=== PATIENT | male | born 1970 | race African-American/Black ===

== ENCOUNTER 2021-10-15 18:21 | Inpatient (IN) | payer OTHER ==
[2021-10-15] MEDS ORDERED: LORazepam 2 MG/ML SDV VIAL IM ONE (19:38)
[2021-10-15] MEDS ORDERED: HALOPERIDOL LACTATE 5 MG/ML IM ONE (19:38)
[2021-10-15 21:10] LABS: BASO % 0.6 % (0-2.0); EOS % 2.3 % (0-4.5); HEMOGLOBIN 13.1 GM/dL (11.7-16.9); LYMPH % 27.6 % (8-40); MCH 26.2 pg (25.7-33.7); MCHC 32.8 g/dl (32.0-35.9); MEAN PLT VOLUME 8.4 fl (7.5-11.1); MONO % 14.6 % (3.8-10.2); NEUT % 54.9 % (42.8-82.8); PLATELET COUNT 157 10^3/uL (134-434); RDW 17.1 % (11.9-15.9)
[2021-10-15 21:30] LABS: EPI CELLS 4 /uL (0-25.1); HYALINE CASTS 0 /uL (0-3.1); URINE APPEARANCE CLEAR; URINE BACTERIA 5 /uL (0-1359); URINE BILIRUBIN NEGATIVE (NEGATIVE); URINE COLOR YELLOW; URINE GLUCOSE (UA) NEGATIVE (NEGATIVE); URINE KETONE NEGATIVE (NEGATIVE); URINE LEUK ESTERASE TRACE (NEGATIVE); URINE NITRITE NEGATIVE (NEGATIVE); URINE PROTEIN NEGATIVE (NEGATIVE); URINE RBC 10 /uL (0-23.9); URINE UROBILINOGEN 0.2 mg/dL (0.2-1.0); URINE WBC 5 /uL (0-25.8)
[2021-10-15 21:39] LABS: CALCIUM 8.8 mg/dL (8.5-10.1)
[2021-10-15 21:40] LABS: ALBUMIN 3.2 g/dl (3.4-5.0); BLOOD UREA NITROGEN 15.3 mg/dL (7-18)
[2021-10-15 21:43] LABS: CREATININE 0.8 mg/dL (0.55-1.3)
[2021-10-15 21:45] LABS: BILIRUBIN,TOTAL 0.2 mg/dL (0.2-1); TOT PROT 7.1 g/dl (6.4-8.2)
[2021-10-16] MEDS ORDERED: AZITHROMYCIN IVPB 500 MG in DEXTROSE 5%-WATER - 250 ML IVPB ONE (06:00)
[2021-10-16] MEDS ORDERED: cefTRIAXone SODIUM 1 GM VIAL ONE ×2 (06:53→09:54)
[2021-10-16] MEDS ORDERED: DEXTROSE 5%-WATER - 50 ML IVPB ONE ×2 (06:53→09:54)
[2021-10-16] MEDS: CEFTRIAXONE 1 GM in DEXTROSE 5%-WATER - 50 ML IVPB SCH (06:55)
[2021-10-16] MEDS ORDERED: AZITHROMYCIN IVPB 500 MG/250 ML BAG IVPB ONE (08:30)
[2021-10-16 08:50] VITALS: BMI 24.1
[2021-10-16 09:17] LABS: BASO % 0.4 % (0-2.0); EOS % 1.9 % (0-4.5); HEMATOCRIT 43.2 % (35.4-49); LYMPH % 16.5 % (8-40); MCH 26.4 pg (25.7-33.7); MCHC 32.5 g/dl (32.0-35.9); MEAN CELL VOLUME 81.2 fl (80-96); MEAN PLT VOLUME 8.5 fl (7.5-11.1); MONO % 8.6 % (3.8-10.2); NEUT % 72.6 % (42.8-82.8); PLATELET COUNT 164 10^3/uL (134-434); RBC 5.32 M/mm3 (4.00-5.60); WHITE BLOOD COUNT 5.8 K/mm3 (4.0-10.0)
[2021-10-16 09:34] LABS: CALCIUM 8.9 mg/dL (8.5-10.1)
[2021-10-16 09:35] LABS: BLOOD UREA NITROGEN 9.3 mg/dL (7-18)
[2021-10-16 09:38] LABS: CREATININE 0.6 mg/dL (0.55-1.3); PHOSPHOROUS 3.6 mg/dL (2.5-4.9)
[2021-10-16 09:39] LABS: BILIRUBIN,TOTAL 0.3 mg/dL (0.2-1); TOT PROT 7.2 g/dl (6.4-8.2)
[2021-10-16] MEDS ORDERED: MINERAL OIL/PETROLAT/WATER TOPICAL CREAM 454 GM JAR TP PRN (10:12)
[2021-10-16] MEDS: amLODIPine BESYLATE 10 MG TABLET (FP) PO SCH (10:18)
[2021-10-16] MEDS: ENOXAPARIN NA (PORCINE) 40 MG/0.4 ML DISP.SYRIN SQ SCH (10:18)
[2021-10-16] MEDS ORDERED: FLU VACC QS2021-22(6MOS UP)/PF 60 MCG/0.5 ML SYRINGE IM ONE (11:00)
[2021-10-16] MEDS: BENZTROPINE MESYLATE 0.5 MG TABLET (FP) PO SCH (13:50)
[2021-10-16] MEDS: ARTIFICIAL TEARS (POLYVINYL ALCOHOL) OPTH DROPS OU SCH ×2 (13:50→22:37)
[2021-10-16] MEDS: PANTOPRAZOLE 40 MG TABLET PO SCH (13:50)
[2021-10-16] MEDS: LISINOPRIL 5 MG TABLET PO SCH (13:50)
[2021-10-16] MEDS: OLANZapine 10 MG TABLET PO SCH ×2 (22:36)
[2021-10-16] MEDS: OLANZapine 5 MG TABLET PO SCH (22:37)
[2021-10-17] MEDS: ARTIFICIAL TEARS (POLYVINYL ALCOHOL) OPTH DROPS OU SCH ×3 (05:42→21:02)
[2021-10-17] MEDS ORDERED: POLYETHYLENE GLYCOL 3350 119 GM BTL PO SCH (10:00)
[2021-10-17] MEDS ORDERED: AZITHROMYCIN IVPB 250 MG in DEXTROSE 5%-WATER - 250 ML IVPB SCH (10:00)
[2021-10-17] MEDS ORDERED: DEXTROSE 5%-WATER - 50 ML IVPB ONE (10:13)
[2021-10-17] MEDS ORDERED: cefTRIAXone SODIUM 1 GM VIAL ONE (10:13)
[2021-10-17] MEDS ORDERED: PT OWN MED DRAWER 7, Y5N ONE (10:20)
[2021-10-17] MEDS: CEFTRIAXONE 1 GM in DEXTROSE 5%-WATER - 50 ML IVPB SCH (10:23)
[2021-10-17] MEDS: PANTOPRAZOLE 40 MG TABLET PO SCH (10:25)
[2021-10-17] MEDS: BENZTROPINE MESYLATE 0.5 MG TABLET (FP) PO SCH (10:25)
[2021-10-17] MEDS: LISINOPRIL 5 MG TABLET PO SCH (10:25)
[2021-10-17] MEDS: amLODIPine BESYLATE 10 MG TABLET (FP) PO SCH (10:26)
[2021-10-17] MEDS: ENOXAPARIN NA (PORCINE) 40 MG/0.4 ML DISP.SYRIN SQ SCH (10:29)
[2021-10-17] MEDS: BRIMONIDINE TARTRATE 0.1% OPHTHALMIC 5 ML BOTTLE OD SCH (10:38)
[2021-10-17] MEDS: OLANZapine 10 MG TABLET PO SCH ×2 (21:01)
[2021-10-17] MEDS: OLANZapine 5 MG TABLET PO SCH (21:02)
[2021-10-18] MEDS: ARTIFICIAL TEARS (POLYVINYL ALCOHOL) OPTH DROPS OU SCH ×3 (05:57→21:36)
[2021-10-18] MEDS ORDERED: PT OWN MED DRAWER 7, Y5N ONE (10:03)
[2021-10-18] MEDS: BENZTROPINE MESYLATE 0.5 MG TABLET (FP) PO SCH (10:07)
[2021-10-18] MEDS: AMOX TR/POT CLAV 875MG/125MG TABLETS (FP) PO SCH ×2 (10:07→16:53)
[2021-10-18] MEDS: BRIMONIDINE TARTRATE 0.1% OPHTHALMIC 5 ML BOTTLE OD SCH (10:07)
[2021-10-18] MEDS: PANTOPRAZOLE 40 MG TABLET PO SCH (10:07)
[2021-10-18] MEDS: ENOXAPARIN NA (PORCINE) 40 MG/0.4 ML DISP.SYRIN SQ SCH (10:07)
[2021-10-18] MEDS: amLODIPine BESYLATE 10 MG TABLET (FP) PO SCH (10:07)
[2021-10-18] MEDS: LISINOPRIL 5 MG TABLET PO SCH (10:08)
[2021-10-18] MEDS: POLYETHYLENE GLYCOL (HEALTHYLAX) 3350 17 GM PACKET PO SCH (10:10)
[2021-10-18] MEDS: OLANZapine 10 MG TABLET PO SCH ×2 (21:31→21:32)
[2021-10-18] MEDS: OLANZapine 5 MG TABLET PO SCH (21:31)
[2021-10-19] MEDS: ARTIFICIAL TEARS (POLYVINYL ALCOHOL) OPTH DROPS OU SCH ×3 (06:33→22:50)
[2021-10-19] MEDS: AMOX TR/POT CLAV 875MG/125MG TABLETS (FP) PO SCH ×2 (08:22→17:21)
[2021-10-19] MEDS ORDERED: PT OWN MED DRAWER 7, Y5N ONE ×2 (09:40→21:13)
[2021-10-19] MEDS: LISINOPRIL 5 MG TABLET PO SCH (09:45)
[2021-10-19] MEDS: BENZTROPINE MESYLATE 0.5 MG TABLET (FP) PO SCH (09:45)
[2021-10-19] MEDS: POLYETHYLENE GLYCOL (HEALTHYLAX) 3350 17 GM PACKET PO SCH (09:45)
[2021-10-19] MEDS: BRIMONIDINE TARTRATE 0.1% OPHTHALMIC 5 ML BOTTLE OD SCH (09:45)
[2021-10-19] MEDS: amLODIPine BESYLATE 10 MG TABLET (FP) PO SCH (09:45)
[2021-10-19] MEDS: PANTOPRAZOLE 40 MG TABLET PO SCH (09:45)
[2021-10-19] MEDS: ENOXAPARIN NA (PORCINE) 40 MG/0.4 ML DISP.SYRIN SQ SCH (09:45)
[2021-10-19] MEDS: OLANZapine 5 MG TABLET PO SCH (21:17)
[2021-10-19] MEDS: OLANZapine 10 MG TABLET PO SCH ×2 (21:17)
[2021-10-20] MEDS ORDERED: HALOPERIDOL LACTATE 5 MG/ML IM ONE ×5 (01:47→10:15)
[2021-10-20] MEDS ORDERED: INSULIN (LEVEMIR) 100 UNITS/ML UNITS SQ ONE (06:45)
[2021-10-20] MEDS ORDERED: INSULIN (NOVOLOG) ASPART 100 UNITS/ML 10ML VIAL ONE (06:45)
[2021-10-20] MEDS: ARTIFICIAL TEARS (POLYVINYL ALCOHOL) OPTH DROPS OU SCH ×2 (06:47→14:59)
[2021-10-20] MEDS ORDERED: LORazepam 2 MG/ML SDV VIAL ONE (09:28)
[2021-10-20] MEDS ORDERED: LORazepam 2 MG/ML SDV VIAL IM ONE ×3 (09:28→09:53)
[2021-10-20] MEDS ORDERED: HALOPERIDOL LACTATE 5 MG/ML ONE (09:54)
[2021-10-20] MEDS: AMOX TR/POT CLAV 875MG/125MG TABLETS (FP) PO SCH ×2 (10:11→18:11)
[2021-10-20] MEDS: BENZTROPINE MESYLATE 0.5 MG TABLET (FP) PO SCH (10:53)
[2021-10-20] MEDS: BRIMONIDINE TARTRATE 0.1% OPHTHALMIC 5 ML BOTTLE OD SCH (10:53)
[2021-10-20] MEDS: POLYETHYLENE GLYCOL (HEALTHYLAX) 3350 17 GM PACKET PO SCH (10:53)
[2021-10-20] MEDS: ENOXAPARIN NA (PORCINE) 40 MG/0.4 ML DISP.SYRIN SQ SCH (10:53)
[2021-10-20] MEDS: amLODIPine BESYLATE 10 MG TABLET (FP) PO SCH (10:54)
[2021-10-20] MEDS: PANTOPRAZOLE 40 MG TABLET PO SCH (10:54)
[2021-10-20] MEDS: LISINOPRIL 5 MG TABLET PO SCH (10:54)
[2021-10-20] MEDS ORDERED: LORazepam 2 MG/ML SDV VIAL IM PRN (11:29)
[2021-10-20] MEDS: OLANZapine 5 MG TABLET PO SCH (22:36)
[2021-10-20] MEDS: OLANZapine 10 MG TABLET PO SCH ×2 (22:37)
[2021-10-21 07:01] VITALS: PULSE 114
[2021-10-21] MEDS ORDERED: INSULIN (LEVEMIR) 100 UNITS/ML UNITS SQ ONE (07:02)
[2021-10-21] MEDS ORDERED: INSULIN (NOVOLOG) ASPART 100 UNITS/ML 10ML VIAL ONE (07:02)
[2021-10-21] MEDS ORDERED: INSULIN (NOVOLOG MIX 70/30) 100 UNITS/ML MDV SQ ONE (07:03)
[2021-10-21] MEDS ORDERED: PT OWN MED DRAWER 7, Y5N ONE (10:32)
[2021-10-21] MEDS: PANTOPRAZOLE 40 MG TABLET PO SCH (10:33)
[2021-10-21] MEDS: AMOX TR/POT CLAV 875MG/125MG TABLETS (FP) PO SCH (10:33)
[2021-10-21] MEDS: LISINOPRIL 5 MG TABLET PO SCH (10:33)
[2021-10-21] MEDS: BENZTROPINE MESYLATE 0.5 MG TABLET (FP) PO SCH (10:33)
[2021-10-21] MEDS: amLODIPine BESYLATE 10 MG TABLET (FP) PO SCH (10:33)
[2021-10-21] MEDS: ENOXAPARIN NA (PORCINE) 40 MG/0.4 ML DISP.SYRIN SQ SCH (10:34)
[2021-10-21 15:00] VITALS: BP 114/72; TEMP 98.2
[2021-10-21] MEDS: ARTIFICIAL TEARS (POLYVINYL ALCOHOL) OPTH DROPS OU SCH (16:08)
[2021-10-21] MEDS: POLYETHYLENE GLYCOL (HEALTHYLAX) 3350 17 GM PACKET PO SCH (16:08)
[2021-10-21] MEDS: BRIMONIDINE TARTRATE 0.1% OPHTHALMIC 5 ML BOTTLE OD SCH (16:08)
== END 2021-10-21 18:43 | disposition home or self-care (01) | DRG 139 ==
LOC: JER 18:21 → JERBED 22:54 → J6S 10-16 03:04
PROVIDERS: ADMIT Internal Medicine; ATTEND Internal Medicine
DX: J18.9 Pneumonia, unspecified organism (principal); F72 Severe intellectual disabilities; Q04.3 Other reduction deformities of brain; I10 Essential (primary) hypertension; R29.6 Repeated falls; R45.6 Violent behavior; R46.89 Other symptoms and signs involving appearance and behavior; R27.0 Ataxia, unspecified; M84.48XA Pathological fracture, other site, initial encounter for fracture; M48.02 Spinal stenosis, cervical region
CPT/HCPCS: 36415; 70460-TC; 72125-TC; 72131-TC; 74018-TC-FY; 74176-TC; 80053; 81003; 82306; 82607; 83735; 84100; 85025; 87086; 87804; 90686; 93005; 93010; 97116-GP; 97162-GP; 99285-25; C9803; G0008; U0003; U0005

== ENCOUNTER 2022-07-09 17:16 | Emergency (ER) | payer OTHER ==
[2022-07-09 17:34] VITALS: BP 132/85; PULSE 98; RESP 18; TEMP 98.3; BMI 20.5
[2022-07-09] MEDS ORDERED: BACITRACIN 15 GM TUBE TOPICAL OINTMENT TP ONE (17:52)
[2022-07-09] MEDS ORDERED: DIPHTH,PERTUSS(ACELL),TET 0.5 ML DISP.SYRIN IM ONE ×2 (17:52→17:56)
== END 2022-07-09 19:40 | disposition home or self-care (01) ==
LOC: JERFT 17:16
PROC: 3E0234Z Introduction of Serum, Toxoid and Vaccine into Muscle, Percutaneous Approach (ICD-10-PCS; principal; 2022-07-09)
DX: S41.151A Open bite of right upper arm, initial encounter (principal)
CPT/HCPCS: 90471; 90715; 99283-25